=== PATIENT | female | born 1945 | race Caucasian/White ===

== ENCOUNTER 2020-08-11 10:38 | Outpatient (CLI) | payer MEDICARE, MEDICAID, OTHER ==
[2020-08-11 12:45] LABS: Anion Gap 13 mmol/L (10-20); BUN (Urea Nitrogen) 21 mg/dL (9.8-20.1); Calc. Creatinine Clearance 0 mL/min (70-130); Carbon Dioxide 29 mmol/L (23-31); Chloride 105 mmol/L (98-107); Glucose 86 mg/dL (83-110); Potassium 4.7 mmol/L (3.5-5.1); Sodium 142 mmol/L (136-145)
[2020-08-11 12:47] LABS: Hemoglobin 12.8 g/dL (12.0-15.5)
[2020-08-12 02:35] LABS: SARS-CoV-2 PCR by NAA Not Detected (NotDetected)
== END 2020-08-11 10:39 | disposition home or self-care (01) ==
LOC: CSHLAB 10:38
PROVIDERS: ATTEND Otolaryngology Plastic Surgery within the Head & Neck
DX: Z01.818 Encounter for other preprocedural examination (principal); Z20.822 Contact with and (suspected) exposure to COVID-19; C06.0 Malignant neoplasm of cheek mucosa; R94.31 Abnormal electrocardiogram [ECG] [EKG]
CPT/HCPCS: 80048; 85014; 85018; 87635; 93005; 93010; U0003; U0005

== ENCOUNTER 2020-08-26 13:00 | Outpatient (CLI) | payer MEDICARE, MEDICAID | END 2020-08-26 13:01 | disposition home or self-care (01) | LOC: CSHCT 13:00 | PROVIDERS: ATTEND Otolaryngology Plastic Surgery within the Head & Neck | DX: C41.1 Malignant neoplasm of mandible (principal); M89.9 Disorder of bone, unspecified | CPT/HCPCS: 70491; 71046; 82565 ==

== ENCOUNTER 2021-07-05 09:40 | Outpatient (CLI) | payer MEDICARE, OTHER ==
[2021-07-05 11:47] LABS: Anion Gap 12 mmol/L (10-20); BUN (Urea Nitrogen) 32 mg/dL (9.8-20.1); Calc. Creatinine Clearance 0 mL/min (70-130); Calcium 9.7 mg/dL (7.8-10.44); Carbon Dioxide 27 mmol/L (23-31); Chloride 107 mmol/L (98-107); Glucose 139 mg/dL (83-110); Potassium 4.5 mmol/L (3.5-5.1); Sodium 141 mmol/L (136-145)
[2021-07-05 19:12] LABS: SARS-CoV-2 PCR by NAA Not Detected (NotDetected)
== END 2021-07-05 09:41 | disposition home or self-care (01) ==
LOC: CSHLAB 09:40
PROVIDERS: ATTEND Otolaryngology Plastic Surgery within the Head & Neck
DX: Z01.818 Encounter for other preprocedural examination (principal); Z20.822 Contact with and (suspected) exposure to COVID-19; C41.1 Malignant neoplasm of mandible; C06.0 Malignant neoplasm of cheek mucosa; D49.0 Neoplasm of unspecified behavior of digestive system; K06.8 Other specified disorders of gingiva and edentulous alveolar ridge
CPT/HCPCS: 80048; 85014; 85018; 93005; 93010; U0003; U0005

== ENCOUNTER 2021-07-10 10:01 | Day surgery (SDC) | payer MEDICARE, OTHER ==
[2021-06-27 13:56] VITALS: BMI 26.9
[2021-07-10] MEDS ORDERED: Lidocaine 1% MPF 2 ML VIAL ONE (10:19)
[2021-07-10] MEDS ORDERED: EPINEPHrine 1 MG/ML AMP ONE (10:35)
[2021-07-10] MEDS ORDERED: SUGAMMADEX SODIUM 200 MG/2 ML VIAL ONE (10:37)
[2021-07-10] MEDS ORDERED: PROPOFOL 20 ML ONE (10:38)
[2021-07-10] MEDS ORDERED: Rocuronium Bromide 10 MG/ML (10ML VIAL) ONE (10:39)
[2021-07-10] MEDS ORDERED: Fentanyl 100 MCG/2 ML VIAL ONE (10:39)
[2021-07-10] MEDS ORDERED: Lidocaine 1% PF 5 ML VIAL ONE (10:39)
[2021-07-10] MEDS ORDERED: Midazolam HCl 2 mg/2 ml Vial ONE (10:39)
[2021-07-10] MEDS ORDERED: Ondansetron PF 4 MG/2 ML Vial ONE (10:39)
[2021-07-10] MEDS ORDERED: Dexamethasone 20 MG/5 ML VIAL ONE (10:39)
[2021-07-10] MEDS ORDERED: PHENYLEPHRINE-NS 100 MCG/ML 10 ML SYRINGE ONE (11:48)
== END 2021-07-10 13:50 | disposition home or self-care (01) ==
LOC: CSHSDC 10:01
PROVIDERS: ATTEND Otolaryngology Plastic Surgery within the Head & Neck
PROC: 0CBM8ZX Excision of Pharynx, Via Natural or Artificial Opening Endoscopic, Diagnostic (ICD-10-PCS; principal; 2021-07-10)
DX: C03.0 Malignant neoplasm of upper gum (principal); C41.1 Malignant neoplasm of mandible; C06.0 Malignant neoplasm of cheek mucosa; Z79.899 Other long term (current) drug therapy; E11.9 Type 2 diabetes mellitus without complications; I10 Essential (primary) hypertension; E78.5 Hyperlipidemia, unspecified; F32.A Depression, unspecified
CPT/HCPCS: 88305; 88331; J0171; J1100; J2250; J2405; J2704; J3010